=== PATIENT | male | born 1955 | race Caucasian/White ===

== ENCOUNTER 2020-06-19 07:07 | Inpatient (IN) | payer MEDICAID, OTHER ==
[~2020-06-19] VITALS: Ht 167.6 cm; Wt 80.3 kg
[~2020-06-19 07:07] MED LIST: AMOX125S12 PO; ATOR-2 PO; CAPE500T15 PO; CLOP75TA33 PO; FERR256T PO; LISI-186 PO; MEGE40TA8 PO; METO25TA6 PO; NAPHADR OP; OMEP20CA14 PO; ONDA8TAB6 SL
[2020-06-19] MEDS ORDERED: SODIUM CHLORIDE 0.9% 1000ML BAG (SEPSIS BOLUS) IV ONE (07:45)
[2020-06-19 08:14] LABS: HEMATOCRIT. 31.8 % (42.0-52.0); HEMOGLOBIN. 9.4 g/dL (14.0-18.0); MEAN CORPUSCULAR HEMOGLOBIN 18.7 pg (28.0-32.0); MEAN CORPUSCULAR VOLUME 62.9 fL (80.0-94.0); MEAN PLATELET VOLUME 8.2 fl (7.4-10.4); PLATELET 346 x1000/uL (130-400); RED BLOOD CELL COUNT 5.06 mill/uL (4.7-6.1); RED CELL DISTRIBUTION WIDTH 27.2 % (11.6-14.6)
[2020-06-19 08:18] LABS: CHLORIDE 97 mEq/L (98-107)
[2020-06-19 08:23] LABS: PROTHROMBIN TIME 10.7 sec (9.6-11.0)
[2020-06-19 08:31] LABS: CLARITY URINE CLOUDY (CLEAR); COLOR URINE YELLOW (YELLOW); KETONES URINE TRACE (NEGATIVE); LEUKOCYTE ESTERASE URINE TRACE (NEGATIVE); NITRITE URINE NEGATIVE (NEGATIVE); OCCULT BLOOD URINE NEGATIVE (NEGATIVE); PROTEIN URINE 1+ (NEGATIVE); SPECIFIC GRAVITY URINE 1.022 (1.005-1.030); UROBILINOGEN URINE 0.2 E.U./dL (0.2-1.0)
[2020-06-19 08:34] LABS: NUCLEATED RED BLOOD CELLS 2 /100 WBC
[2020-06-19 08:35] LABS: PLATELET ESTIMATE NORMAL
[2020-06-19] MEDS ORDERED: VANCOMYCIN 1 G PREMIX 200 ML IV ONE (09:00)
[2020-06-19] MEDS ORDERED: PIPERACILLIN/TAZ 3.375G PREMIX 50 ML IV ONE (09:00)
[2020-06-19] MEDS ORDERED: NOREPINEPHRINE 8MG/250ML PMX 250 ML IV STA (09:10)
[2020-06-19] MEDS ORDERED: NOREPINEPHRINE 8MG/250ML PMX 250 ML IV ONE (09:12)
[2020-06-19] MEDS ORDERED: MEROPENEM 1,000 MG in SODIUM CHLORIDE 0.9% 100 ML IV SCH (14:30)
[2020-06-19] MEDS ORDERED: SODIUM CHLORIDE 0.9% 1,000 ML IV SCH (14:36)
[2020-06-19] MEDS ORDERED: AZITHROMYCIN 500 MG in DEXT 5% WATER 250 ML IV NR (14:45)
[2020-06-19] MEDS ORDERED: MAGNESIUM/ALUMINUM HYDROXIDE/SIMETHICONE 30ML UDC PO PRN (14:45)
[2020-06-19] MEDS ORDERED: GUAIFENESIN 200MG/10ML SUGAR FREE UDC PO PRN (14:45)
[2020-06-19] MEDS ORDERED: NA PHOS,M-B/NA PHOS,DI-BA ENEMA 118ML PR PRN (14:45)
[2020-06-19] MEDS ORDERED: NOREPINEPHRINE 8 MG in DEXT 5% WATER 242 ML IV PRN ×2 (14:45→15:00)
[2020-06-19] MEDS ORDERED: DIPHENHYDRAMINE 50MG/ML VIAL IV PRN (14:45)
[2020-06-19] MEDS ORDERED: ONDANSETRON HCL 4MG/2ML INJ IV PRN (14:45)
[2020-06-19] MEDS ORDERED: DOCUSATE SODIUM 100MG CAPSULE PO PRN (14:45)
[2020-06-19] MEDS ORDERED: CLONIDINE 0.1MG TABLET PO PRN (14:45)
[2020-06-19] MEDS ORDERED: ACETAMINOPHEN 650MG/20.3ML UDC GT PRN (14:45)
[2020-06-19] MEDS ORDERED: PIPERACILLIN/TAZ 3.375G PREMIX 50 ML IV SCH ×2 (14:45→15:00)
[2020-06-19] MEDS ORDERED: DOCU250C69 MT (14:46)
[2020-06-19] MEDS ORDERED: ASPI-1160 MT (14:46)
[2020-06-19] MEDS ORDERED: HYDR28OI2 TP (14:46)
[2020-06-19] MEDS ORDERED: SUCR1TAB30 MT (14:46)
[2020-06-19] MEDS ORDERED: BISO5TAB13 MT (14:46)
[2020-06-19] MEDS ORDERED: PROT40 MT (14:46)
[2020-06-19] MEDS ORDERED: ENOXAPARIN 30MG/0.3ML SYR SUBCUT SCH (15:00)
[2020-06-19] MEDS ORDERED: SODIUM BICARBONATE 100 MEQ in SODIUM CHLORIDE 0.45% 1,000 ML IV SCH (15:00)
[2020-06-19] MEDS ORDERED: MORPHINE SULFATE 2 MG/ML CPJ (NOT FOR IM USE) IV PRN (15:15)
[2020-06-19 16:00] LABS: BG BASE EXCESS -15.2 mmol/L (-2.0-2.0); BG CARBOXYHEMOGLOBIN 0.9 % (0.5-1.5); BG DEOXYHEMOGLOBIN 1.1 % (0.0-5.0); BG FRACTION INSPIRED OXYGEN 34; BG HCO3 ACT 9.6 mmol/L (22.0-26.0); BG METHEMOGLOBIN 0.3 % (0.0-1.5); BG OXYGEN SATURATION 98.9 % (92.0-98.5); BG OXYHEMOGLOBIN 97.7 % (94.0-97.0); BG PCO2 20.1 mmHg (35.0-45.0); BG PH 7.298 (7.350-7.450); BG PO2 163.5 mmHg (75.0-100.0); BG SAMPLE SITE RIGHT BRACHIAL; BG TOTAL HEMOGLOBIN 8.4 g/dL (12.0-18.0); BG VENT MODE NASAL CANNULA
[2020-06-19 16:26] LABS: METHADONE URINE SCREEN NEGATIVE (NEGATIVE); OPIATES URINE SCREEN NEGATIVE (NEGATIVE); PHENCYCLIDINE URINE SCREEN NEGATIVE (NEGATIVE)
[2020-06-19 16:27] LABS: *AMPHETAMINES SCREEN URINE NEGATIVE (NEGATIVE); *BARBITURATES SCREEN URINE NEGATIVE (NEGATIVE); *BENZODIAZEPINES SCREEN URINE NEGATIVE (NEGATIVE); *COCAINE SCREEN URINE NEGATIVE (NEGATIVE); CANNABINOID URINE SCREEN NEGATIVE (NEGATIVE)
[2020-06-19] MEDS ORDERED: SODIUM BICARBONATE 75 MEQ in SODIUM CHLORIDE 0.45% 1,000 ML IV SCH (17:00)
[2020-06-19] MEDS ORDERED: KCL 20MEQ/100ML PREMIX 100 ML IV NR (17:00)
[2020-06-19] MEDS ORDERED: KCL 20MEQ/100ML PREMIX 100 ML IV SCH ×2 (20:00→23:00)
[2020-06-19] MEDS ORDERED: DEXT 5%/0.45% NACL 1000ML 1,000 ML IV SCH (21:55)
[2020-06-19] MEDS ORDERED: WATER IV SCH (22:15)
[2020-06-19] MEDS ORDERED: SODIUM BICARBONATE IV SCH (22:15)
[2020-06-19] MEDS ORDERED: DEXTROSE 5% IV SCH (22:15)
[2020-06-20 01:00] VITALS: BP 136/96
[2020-06-20 01:15] VITALS: BP 157/57
[2020-06-20] MEDS ORDERED: VANCOMYCIN 1 G PREMIX 200 ML IV SCH (06:00)
[2020-06-20] MEDS ORDERED: AZITHROMYCIN 250 MG in DEXT 5% WATER 250 ML IV SCH (12:00)
== END 2020-06-20 01:36 | disposition expired | DRG 871 ==
LOC: ER 07:44 → ENRESERV 09:08 → CANRESERV 09:08 → EDBEDREQTM 11:29 → EDBEDREQSVC 11:29 → EDBEDREQ 11:29 → EDBEDREQTM 11:59 → EDBEDREQ 11:59 → EDBEDREQSVC 11:59 → ENRESERV 21:05 → MICUSO 06-20 00:57
PROVIDERS: ADMIT Family Medicine; ATTEND Family Medicine
PROC: 06HY33Z Insertion of Infusion Device into Lower Vein, Percutaneous Approach (ICD-10-PCS; principal; 2020-06-20)
PROC: B54BZZA Ultrasonography of Right Lower Extremity Veins, Guidance (ICD-10-PCS; 2020-06-20)
DX: A41.9 Sepsis, unspecified organism (principal); E43 Unspecified severe protein-calorie malnutrition; G93.41 Metabolic encephalopathy; J96.00 Acute respiratory failure, unspecified whether with hypoxia or hypercapnia; N17.0 Acute kidney failure with tubular necrosis; R65.21 Severe sepsis with septic shock; J69.0 Pneumonitis due to inhalation of food and vomit; C16.9 Malignant neoplasm of stomach, unspecified; C78.00 Secondary malignant neoplasm of unspecified lung; C78.7 Secondary malignant neoplasm of liver and intrahepatic bile duct; E87.1 Hypo-osmolality and hyponatremia; E87.2 Acidosis; I50.32 Chronic diastolic (congestive) heart failure; J44.0 Chronic obstructive pulmonary disease with (acute) lower respiratory infection; R18.8 Other ascites; C77.9 Secondary and unspecified malignant neoplasm of lymph node, unspecified; C78.89 Secondary malignant neoplasm of other digestive organs; Z66 Do not resuscitate; D63.0 Anemia in neoplastic disease; D70.9 Neutropenia, unspecified; E78.5 Hyperlipidemia, unspecified; E86.0 Dehydration; E86.1 Hypovolemia; E87.6 Hypokalemia; I11.0 Hypertensive heart disease with heart failure; I25.10 Atherosclerotic heart disease of native coronary artery without angina pectoris; I25.5 Ischemic cardiomyopathy; B19.20 Unspecified viral hepatitis C without hepatic coma; C80.1 Malignant (primary) neoplasm, unspecified; K21.9 Gastro-esophageal reflux disease without esophagitis; K59.00 Constipation, unspecified; K40.20 Bilateral inguinal hernia, without obstruction or gangrene, not specified as recurrent; K74.60 Unspecified cirrhosis of liver; Z20.828 Contact with and (suspected) exposure to other viral communicable diseases; Z82.49 Family history of ischemic heart disease and other diseases of the circulatory system; Z68.28 Body mass index [BMI] 28.0-28.9, adult; I25.2 Old myocardial infarction; Z85.028 Personal history of other malignant neoplasm of stomach; Z86.73 Personal history of transient ischemic attack (TIA), and cerebral infarction without residual deficits; Z92.21 Personal history of antineoplastic chemotherapy; Z92.3 Personal history of irradiation
CPT/HCPCS: 36415; 36600; 71045; 74176; 80053; 80305; 81003; 82375; 82805; 82962; 83605; 83880; 84145; 84484; 85025; 87635; 93005; 99291; J0456; J1650; J2185; J2270; J2543; J3370; J3480; J3490; J7030; J7050; J7060; J7070